=== PATIENT | male | born 2000 | race Caucasian/White ===

== ENCOUNTER 2024-12-28 13:31 | Emergency (ER) | payer SELFPAY ==
[2024-12-28] VITALS (9 sets, daily range): BP systolic 112–152; BP diastolic 69–95
--- NOTE | 2024-12-28 13:42 | EDRN ---
Stroke alert called 1341. Sofi Kam ACTIVATED SLUDGE OPERATOR in triage room evaluating pt.
[2024-12-28 13:46] LABS: Glucose - Point of Care 123 mg/dl (70-99)
--- NOTE | 2024-12-28 13:48 | CON.NEURO ---
Addendum entered and electronically signed by Alok Mart MD 12/28/24 15:26:
Studies reviewed.
I have personally examined the patient. I reviewed and agree with the REVIEW ENGINEER's Note.
My addenda:
Awake, alert, interactive. No acute distress.
Speech intact.
Follows 2-step requests w/o difficulty. No tremor.
Extra-ocular movements grossly intact.
Facial movements full and symmetric. Hearing intact to normal conversational volume.
Normal UE movements bilaterally.
Neck: full ROM.
Chest: no dyspnea
Heart: no JVD
Ext: (-) Clubbing, (-) Cyanosis, (-) Edema
IMPRESSIONS/RECOMMENDATIONS:
Abrupt onset of right hemibody sensory change without headache and with significant hypertension
Differential diagnosis includes hypertensive encephalopathy
Goal of normotension
Check blood work for metabolic abnormalities
Consider MRI of brain as outpatient with and without contrast for possible demyelination although that is not suggested by CAT scan of the head today
D/W patient / family
Will continue to follow as outpatient.
Original Note:
Documented by User: Muna Maloney NP 12/28/24 14:51
Neuro Assessment/Plan
Assessment
This is a 24 year old right-handed male with no known medical history presenting to [facility] on 12/28/2024 for evaluation of right-sided numbness.
Head CT: no acute intracranial abnormalities
Plan
Impression: abrupt onset of nausea and right sided weakness possibly due to hypertensive encephalopathy, CVA less likely given no risk factors, age and head CT negative
-goal normotension
-goal normoglycemia
-check blood work for metabolic abnormalities
-if symptoms persist consider brain MRI
All questions encouraged and answered, plan of care discussed with Dr. Mart, hospitalist, nurse, patient and family
Consultation
Order
Date of Consultation: 12/28/24
Requesting Provider: hospitalist
Reason for Consult: right-sided numbness
Subjective/Objective
Subjective Data
Date of Service: December 28, 2024
This is a 24 year old right-handed male with no known medical history presented to [facility] on 12/28/2024 for evaluation of right-sided numbness. He woke up at 6 am yesterday with nausea and did not go to work. He decided to go to work today at 7 am
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 He started to feel nauseous again and decided to leave work. He was driving home around 1300 and noticed right face, right upper extremity and right upper leg numbness. Denies drug or alcohol use.
Denies headache or history of migraines. Denies weakness to upper or lower extremities. No issues driving. Denies neck pain or back pain. Denies issues with gait or balance. Denies issues with bowel/bladder. No issues with vision, speech or
swallowing. Never had symptoms like this before. In ED, BP elevated. On arrival to ED patient stroke alerted. Taken to head CT with no acute intracranial abnormalities noted. Not a TNK candidate, current NIHSS 0. Nausea resolved, continues with
right sided numbness.
Objective Data
Vital Signs
Temp Pulse Resp BP Pulse Ox
98.3 F 103 16 152/95 100
12/28/24 13:34 12/28/24 13:34 12/28/24 13:34 12/28/24 13:34 12/28/24 13:34
Patient Allergies
No Known Allergies Allergy (Verified 12/28/24 13:43)
CVA Assessment
Onset of Stroke Symptoms
Onset of symptoms known: Yes
Date of onset of symptoms: 12/28/24
Time of onset of symptoms: 13:00
Time pt last seen normal is known: Yes
Date last time pt seen normal: 12/28/24
Time last time pt seen normal: 13:00
NIH Stroke Score
Level of Consciousness: 0 - Alert
LOC Questions: 0-Answers both correctly
LOC Commands: 0-Performs both correctly
Best Horizontal Gaze: 0-Normal
Visual Chauhan: 0=Normal, no visual loss
Facial Palsy: 0=Normal, symmetrical
Motor - Right Arm: 0=No drift 10 seconds
Motor - Left Arm: 0=No drift 10 seconds
Motor - Right Le-No drift 5 seconds
Motor - Left Le-No drift 5 seconds
Limb Ataxia: 0-Absent
Sensation: 0-Normal
Best Language: 0-No aphasia
Dysarthria: 0-Normal
Extinction and Inattention: 0-No abnormality
NIH Total Score:: 0
Tenecteplase Contraindications
Inclusion and Exclusion criteria reviewed: Yes
IAT Contraindications: NIHSS < 6
Review of Systems
-
History Source: Patient
Constitutional: No Symptoms
EENT: No Symptoms Reported
Respiratory: No Symptoms
Cardiac: No Symptoms
Abdomen/GI: Nausea
Genitourinary: No Symptoms
Musculoskeletal: No Symptoms
Skin: No Symptoms
Neuro: Numbness
Endocrine: No Symptoms
Hematologic / Lymphatic: No Symptoms
Allergy / Immunology: No Symptoms
Physical Exam
-
General: No Apparent Distress, Comfortable and Appears Stated Age
HEENT: Normocephalic, Atraumatic and Anicteric
Neck: Full Range of Motion
Respiratory: No Dyspnea
Cardiac: No JVD
GI: Non-distended
Skin: Unremarkable
Extremities: No Clubbing, No Cyanosis and No Edema
Psych: Unremarkable
Extended Neurological Exam
Mood & Affect: Mood Unremarkable
Attention Span & Concentration: Awake, Alert, Interactive and No Difficulty with 2 Step Request
Memory: Unremarkable
Tremor: Hand Tremor Absent and Head Tremor Absent
Involuntary Movement: None
Speech: Quality Unremarkable, Quantity Unremarkable and Rate of Production Unremarkable
Cranial Nerve II: Left Eye: Visual Chauhan Intact
Cranial Nerve II: Right Eye: Visual Chauhan Intact
Cranial Nerves III, IV, : Extraocular Movement: Extraocular Movement Full in all Directions
Cranial Nerve VII: Facial Symmetry: Normal Facial Symmetry
Cranial Nerve VIII: Hearing: Unremarkable Hearing to Normal Conversational Volume
Cranial Nerves IX, X: Palate Movement: Palate Elevation Symmetric
Cranial Nerve XI: Shoulder Shrug: Unremarkable
Cranial Nerve XII: Tongue Protusion: Midline
Muscle Strength, Overall: Full Throughout
Muscle Bulk & Tone: Bulk Unremarkable and Tone Unremarkable
Pronator Drift: No Drift in Upper Extremities and No Drift in Lower Extremities
Coordination: [id number]-[id number] Testing Unremarkable and Reaches for Objects without Difficulty
Data Reviewed
-
CT Head: Ordered and Image Reviewed
Labs: Report Reviewed
Reviewed with: Physician, Patient and Family
Old Records: Summarized
Medications
-
Home Medications
�Medication �Instructions �Recorded
No Meds [No Current Medications] 03/25/14

Documented by User: Alok Mart MD 12/28/24 15:19
CVA Assessment
NIH Stroke Score
NIH Total Score:: 0
--- NOTE | 2024-12-28 13:59 | ED.GENMED ---
History of Present Illness
General
Chief Complaint: Numbness
Source: patient
Exam Limitations: none
Time Seen by Provider: 12/28/24 13:53
Nursing documentation reviewed up to this point in time: agreed with
History of Present Illness
History of Present Illness:
24-year-old male limited past medical history nose history of migraines no drugs or alcohol is outside working from 7 AM to 1 PM was driving home developed right sided facial numbness felt panicky right leg numbness, came to triage where he was
evaluated stroke alert was called when I evaluated the patient he is awake alert and oriented moving all extremities clear speech
Phy Exam
Physical Exam
Physical Exam:
Physical Exam
General: no apparent distress, not acutely ill
Neck: No jaundice
Heart: s1/s2 regular rate and rhythm, no murmur. equal radial pulses.
Lungs: no acute respiratory distress. clear bilaterally
Abdomen: Nontender
Neuro: alert and oriented. no focal neurological deficits normal [id number] clear speech no facial palsy
Skin: no rash
Psychiatric: well kept. interactive and cooperative
Extremities: no edema.
Course
Orders/Labs/Results
Orders:
Orders
12/28/24 13:41
CT HEAD STROKE ALERT W/o Cont Urgent
Comment:
Reason For Exam: R sided facial numbness, R blurry vision
12/28/24 13:48
CMP [Comprehensive Metabolic Panel] Urgent
Complete Blood Count/With Diff Urgent
Lyme Progressive Urgent
12/28/24 13:53
Add On- LAB Urgent
Tests Added?: lyme progressive
0.9% Sodium Chloride 1000 ml [Nss] 1,000 ml IV BOLUS
Abnormal Lab Results
12/28/24 12/28/24
13:44 13:48
Absolute Monos (auto) 0.8 H 10^3/uL
(0.1-0.6)
Glucose 107 H mg/dl
(70-99)
Calcium 10.6 H mg/dl
(8.4-10.2)
Total Bilirubin 1.5 H mg/dl
(0.2-1.3)
Total Protein 9.2 H g/dl
(6.3-8.2)
Albumin 5.9 H g/dl
(3.5-5.0)
POC Glucose 123 H mg/dl
(70-99)
12/28/24 13:48
12/28/24 13:48
Vital Signs
Initial and Last Documented VS:
Initial Vital Signs
Temp Pulse Resp BP Pulse Ox
98.3 F 103 16 152/95 100
12/28/24 13:34 12/28/24 13:34 12/28/24 13:34 12/28/24 13:34 12/28/24 13:34
Last Documented Vital Signs
Temp Pulse Resp BP Pulse Ox
98.3 F 71 14 112/90 100
12/28/24 13:34 12/28/24 15:15 12/28/24 15:00 12/28/24 15:15 12/28/24 15:15
MDM/Problems Addressed
Differential Diagnosis Includes:
Dehydration seizure CVA panic attack complicated migraine
MDM/Problems Addressed:
Numbness
*Pulse Oximetry
SaO2: 100
Oxygen Mode of Delivery: Room air
Patient hypoxic: no
*Critical Care Note
Total Time (30-74mins, 75-104mins- exclusive of procedures): 8
Update Note
Update Note:
3:15 PM update patient
vss
non focal exam
stable for dc
pcp f/u, ER if worsening symptoms
ED Attending Note
-
Portions of this chart may have been created with voice recognition software.� Occasional wrong word or��sound alike� substitutions may have occurred due to the inherent limitations of voice recognition software.
Discharge Plan
Departure
Patient Disposition: Home (Routine Discharge)
Date of Disposition: 12/28/24
Time of Disposition: 15:19
Patient with high blood pressure during this ER visit?: Yes
Condition: Good
Discharge Problem:
Numbness and tingling
Instructions: Paresthesia (DC)
Prescriptions:
No Action
No Current Medications
0
Referrals:
[facility] [Provider Group] - Follow up in 2-3 days
Interventions
Interventions:
*Risk Screen - Suicide Last Done: 12/28/24 13:46
*General Assessment Last Done: 12/28/24 13:53
*Neglect/Abuse Screening Last Done: 12/28/24 13:46
*ED- Fall Risk Assessment Last Done: 12/28/24 13:53
*ED COVID-19 Vaccine History Last Done: 12/28/24 13:44
*Nursing Disposition Last Done: 12/28/24 15:30
ED- Neurological Assessment Last Done: 12/28/24 13:45
Discharge Date and Time
Discharge Date/Time: 12/28/24 15:30
Print Language: LATVIAN
[2024-12-28 14:00] LABS: Hematocrit 51.1 % (39.0-52.0); Hemoglobin 17.9 g/dL (13.0-18.0); Mean Corp Hgb Conc. 35.0 g/dL (33.0-37.0); Mean Corpuscular Volume 86.3 fL (80.0-94.0); Nucleated Red Blood Cells % 0 % (-); Platelet Count 294 10^3/uL (130-400); Red Cell Dist. Width 12.4 % (11.5-14.5)
[2024-12-28] MEDS: NSS 1000 IV (14:06)
[2024-12-28 14:16] LABS: ALT (SGPT) 29 U/L (0-50); AST (SGOT) 26 U/L (17-59); Albumin 5.9 g/dl (3.5-5.0); Alkaline Phosphatase 73 U/L (38-126); Blood Urea Nitrogen 19 mg/dl (9-20); Calcium 10.6 mg/dl (8.4-10.2); Carbon Dioxide 24 mmol/L (22-30); Chloride 104 mmol/L (98-107); Glucose 107 mg/dl (70-99); Potassium 3.6 mmol/L (3.5-5.1); Sodium 141 mmol/L (135-145); Total Protein 9.2 g/dl (6.3-8.2); eGFR > 60.00
[2024-12-30 15:06] LABS: Lyme Antibody Screen, EIA Negative (Negative)
== END 2024-12-28 15:30 | disposition home or self-care (01) ==
LOC: EMR 13:31
PROVIDERS: EMERGENCY PHYSICIAN Emergency Medicine
DX: R20.2 Paresthesia of skin (principal); R20.0 Anesthesia of skin
CPT/HCPCS: 99284; 70450; 80053; 82962; 85025; 86618